=== PATIENT | male | born 1960 | race Two or more races ===

== ENCOUNTER 2024-08-30 07:01 | Day surgery (SDC) | payer OTHER ==
[2024-08-30] MEDS ORDERED: fentaNYL CITRATE 50 MCG/ML AMPUL IV PUSH ONE (10:30)
[2024-08-30] MEDS ORDERED: MIDAZOLAM HCL 2 MG/2 ML VIAL IV ONE (10:30)
[2024-08-30] MEDS ORDERED: DIPHENHYDRAMINE HCL 50 MG/ML VIAL 1ML IV ONE (10:30)
== END 2024-08-30 11:00 | disposition home or self-care (01) ==
LOC: AMB-ENDOS 07:01
PROVIDERS: ATTEND Colon & Rectal Surgery
DX: C18.7 Malignant neoplasm of sigmoid colon (principal); K92.1 Melena; Z86.0100 Personal history of colon polyps, unspecified